=== PATIENT | male | born 1955 | race Caucasian/White ===

== ENCOUNTER → 2016-12-26 | Outpatient (REF) | payer OTHER ==
[2016-12-26 18:47] LABS: ALBUMIN 4.2 GM/DL (3.2-5.2); ALBUMIN/GLOBULIN RATIO 1.35 (1.00-1.93); ALKALINE PHOSPHATASE 56 U/L (45-117); ALT/SGPT 41 U/L (12-78); ANION GAP 11 MEQ/L (8-16); AST/SGOT 25 U/L (15-37); BILIRUBIN,TOTAL 0.7 MG/DL (0.2-1.0); BLOOD UREA NITROGEN 15 MG/DL (7-18); CALCIUM LEVEL 8.9 MG/DL (8.8-10.2); CARBON DIOXIDE LEVEL 28 MEQ/L (21-32); CHLORIDE LEVEL 103 MEQ/L (98-107); CREATININE FOR GFR 0.94 MG/DL (0.70-1.30); GLOMERULAR FILTRATION RATE > 60.0 (>49); GLUCOSE, FASTING 191 MG/DL (80-110); POTASSIUM SERUM 3.9 MEQ/L (3.5-5.1); SODIUM LEVEL 142 MEQ/L (136-145); TOTAL PROTEIN 7.3 GM/DL (6.4-8.2)
[2016-12-26 18:48] LABS: BASO % 0.7 % (0.0-1.0); EOS # 0.1 K/mm3 (0.0-0.50); LARGE UNSTAINED CELL # 0.1 K/mm3 (0.0-0.4); LARGE UNSTAINED CELL % 2.1 % (0.0-4.0); LYMPH # 1.6 K/mm3 (1.5-4.5); MEAN CORPUSCULAR HGB CONC 33.7 g/dl (32.0-36.5); MEAN CORPUSCULAR VOLUME 94.8 fl (80.0-96.0); MONO # 0.3 K/mm3 (0.0-0.8); MONO % 5.8 % (0.0-5.0); NEUTROPHILS # 2.9 K/mm3 (1.8-7.7); NEUTROPHILS % 58.4 % (36.0-66.0); PLATELET COUNT, AUTOMATED 155 k/mm3 (150-450); RED CELL DISTRIBUTION WIDTH 13.2 % (11.5-14.5)
[2016-12-26 18:50] LABS: FOLATE > 24.0 NG/ML (>5.4)
[2016-12-26 19:26] LABS: VITAMIN B12 LEVEL 1336 PG/ML (247-911)
== END ==
LOC: M LABNEURO 17:33
PROVIDERS: ATTEND Psychiatry & Neurology Neurology
DX: Z79.899 Other long term (current) drug therapy (principal)

== ENCOUNTER 2022-08-23 00:08 | Observation (INO) | payer OTHER ==
[~2022-08-23] VITALS: Ht 182.9 cm; Wt 101.7 kg
[2022-08-23 22:00] VITALS: BP 131/60
[2022-08-23] MEDS ORDERED: NS 1,000 ML IV SCH (23:50)
[2022-08-23] MEDS ORDERED: NS 500 ML IV ONE (23:50)
[2022-08-23] MEDS ORDERED: KETOROLAC 30 MG/ML 1ML VIAL IV ONE (23:55)
[2022-08-24] VITALS: BP 138/65
[2022-08-24] MEDS: PIPERACILLIN/TAZOBACTAM SOD 3.375 GM in D5W MINI-BAG PLUS 50 ML IV SCH ×2 (02:40→08:07)
[2022-08-24] MEDS ORDERED: HYDROMORPHONE HCL 0.5 MG/ 0.5 ML SYRINGE IV PRN (02:45)
[2022-08-24 03:13] LABS: ALBUMIN 3.6 G/DL (3.2-5.2); ALKALINE PHOSPHATASE 230 U/L (46-116); ALT/SGPT 1879 U/L (7.0-40); AST/SGOT 1783 U/L (<34); BILIRUBIN,TOTAL 2.9 MG/DL (0.3-1.2); BLOOD UREA NITROGEN 18 MG/DL (9-23); CALCIUM LEVEL 8.4 MG/DL (8.3-10.6); CARBON DIOXIDE LEVEL 26 MMOL/L (20-31); CHLORIDE LEVEL 103 MMOL/L (98-107); CREATININE FOR GFR 0.99 MG/DL (0.70-1.30); GLOMERULAR FILTRATION RATE > 60.0 (>49); GLUCOSE, FASTING 124 MG/DL (74-106); POTASSIUM SERUM 3.4 MMOL/L (3.5-5.1); SODIUM LEVEL 138 MMOL/L (136-145)
[2022-08-24 03:33] VITALS: BP 136/63
[2022-08-24 07:26] LABS: HEMATOCRIT 42.4 % (42.0-52.0); HEMOGLOBIN 14.6 g/dl (13.5-17.5); MEAN CORPUSCULAR HEMOGLOBIN 31.4 pg (27.0-33.0); MEAN CORPUSCULAR HGB CONC 34.4 g/dl (32.0-36.5); MEAN CORPUSCULAR VOLUME 91.2 fl (80.0-96.0); PLATELET COUNT, AUTOMATED 122 10^3/uL (150-450); RED BLOOD COUNT 4.65 10^6/uL (4.30-6.10); WHITE BLOOD COUNT 7.7 10^3/uL (4.0-10.0)
[2022-08-24] MEDS ORDERED: KETOROLAC 30 MG/ML 1ML VIAL IV SCH (08:00)
[2022-08-24] MEDS ORDERED: ZOSY1SOL5 IV (09:30)
[2022-08-24 10:12] LABS: ALBUMIN 3.5 G/DL (3.2-5.2); ALKALINE PHOSPHATASE 221 U/L (46-116); BILIRUBIN,TOTAL 2.5 MG/DL (0.3-1.2); CALCIUM LEVEL 8.4 MG/DL (8.3-10.6); CARBON DIOXIDE LEVEL 27 MMOL/L (20-31); CHLORIDE LEVEL 103 MMOL/L (98-107); GLOMERULAR FILTRATION RATE > 60.0 (>49); GLUCOSE, FASTING 116 MG/DL (74-106); MAGNESIUM LEVEL 1.9 MG/DL (1.8-2.4); POTASSIUM SERUM 3.4 MMOL/L (3.5-5.1); SODIUM LEVEL 139 MMOL/L (136-145)
[2022-08-24 10:40] LABS: HEPATITIS B SURFACE ANTIGEN NEGATIVE (NEGATIVE)
[2022-08-24 10:46] LABS: ALT/SGPT 1666 U/L (7.0-40); AST/SGOT 1272 U/L (<34); BLOOD UREA NITROGEN 21 MG/DL (9-23)
[2022-08-24 11:01] LABS: HEPATITIS B CORE ANTIBODY IGM NEGATIVE (NEGATIVE); HEPATITIS C VIRUS ABY INDEX < 0.0 INDEX (<0.8)
== END 2022-08-24 09:33 | disposition other institution (70) ==
LOC: PREINTOOBSV 00:08 → M PCU 23:49
PROVIDERS: ADMIT Internal Medicine; ATTEND Internal Medicine
DX: K80.00 Calculus of gallbladder with acute cholecystitis without obstruction (principal); R74.8 Abnormal levels of other serum enzymes; R17 Unspecified jaundice; E87.20 Acidosis, unspecified; R10.10 Upper abdominal pain, unspecified; R50.9 Fever, unspecified; M79.10 Myalgia, unspecified site; Z98.84 Bariatric surgery status; I10 Essential (primary) hypertension; E78.00 Pure hypercholesterolemia, unspecified; E66.9 Obesity, unspecified; Z87.891 Personal history of nicotine dependence
CPT/HCPCS: 36415; 80053; 83605; 83735; 85027; 86705; 86709; 86803; 87340; 96365; 96375; 96376; J1885; J2543

== ENCOUNTER → 2024-02-04 | Outpatient (CLI) | payer MEDICARE ==
[~2024-02-04] MED LIST: PIPE3.3729 IV
== END ==
LOC: M RAD 08:37
PROVIDERS: ATTEND Physician Assistant
DX: K55.1 Chronic vascular disorders of intestine (principal); R20.8 Other disturbances of skin sensation

== ENCOUNTER → 2025-02-05 | Outpatient (CLI) | payer MEDICARE | LOC: M RAD 13:11 | PROVIDERS: ATTEND Physician Assistant | DX: K55.1 Chronic vascular disorders of intestine (principal); I65.29 Occlusion and stenosis of unspecified carotid artery ==

== ENCOUNTER → 2025-02-05 | Outpatient (CLI) | payer MEDICARE | LOC: M RAD 13:14 | PROVIDERS: ATTEND Physician Assistant | DX: K55.1 Chronic vascular disorders of intestine (principal); I65.22 Occlusion and stenosis of left carotid artery ==

== ENCOUNTER → 2025-03-24 | Outpatient (CLI) | payer MEDICARE ==
[~2025-03-24] MED LIST changes: +ISOVUE-370 76% 100 ML VIAL As Ordered ONE
== END ==
LOC: M RAD 10:20
PROVIDERS: ATTEND Surgery Vascular Surgery
DX: I65.29 Occlusion and stenosis of unspecified carotid artery (principal)
CPT/HCPCS: 70496; 70498; Q9967